=== PATIENT | female | born 1955 | race Caucasian/White ===

== ENCOUNTER → 2016-12-22 | Outpatient (CLI) | payer MEDICARE, OTHER ==
[~2016-12-22] MED LIST: ADVAIR 500-501 EACH INH; ARIMIDEX 1 MG TA1 MG PO; AROMASIN25 MG PO; AUGMENTIN 500-1 EACH PO; CILOSTAZOL50 MG PO; FLONASE 0.05% N16 GM; INCRUSE ELLI62.5 MCG INH; KLOR-CON M1010 MEQ PO; LOPRESSOR50 MG PO; LYRICA150 MG PO; MIRAPEX0.25 MG PO; MONTELUKAST SOD10 MG PO; MYCOPHENOLIC A360 MG PO; PREDNISONE 5 MG5 MG PO; PROGRAF1 MG PO; TESSALON PERLE100 MG PO; VENTOLIN HFA 66.7 GM INH; VITAMIN D250000 UNIT PO; ZOCOR20 MG PO
== END ==
LOC: RAD 18:00
DX: M25.521 Pain in right elbow (principal)
CPT/HCPCS: 71020; 73080